=== PATIENT | male | born 1930 | race Caucasian/White ===

== ENCOUNTER → 2017-11-26 | Outpatient (CLI) | payer MEDICARE, OTHER ==
[~2017-11-26] MED LIST: BACTRIM DS1 TAB PO; BG MC; CIPRO500 MG PO; COL100 PO; KEFLEX500 MG PO; LAC PO; METFORMIN HCL500 MG PO; NORCO1 TA2 PO; SANOINT TOP
== END | disposition home or self-care (01) ==
LOC: RD 16:23
DX: R07.81 Pleurodynia (principal)